=== PATIENT | male | born 1955 | race Caucasian/White ===

== ENCOUNTER → 2018-12-13 08:23 | Outpatient (CLI) | payer MEDICARE, MEDICAID ==
[~2018-12-13] VITALS: Ht 182.9 cm; Wt 91.4 kg
[~2018-12-13 08:23] MED LIST: NORCO 10-325 TA1 TAB PO; PEPCID AC20 MG PO; REQUIP5 MG PO
[2018-12-13 08:56] LABS: BASOPHILS 0.6 % (0-2); EOSINOPHILS 5.8 % (0-7); HEMATOCRIT 38.9 % (42.0-54.0); HEMOGLOBIN 13.2 g/dL (13.5-17.5); LYMPHOCYTES 32.1 % (15-50); MCH 31.4 pg (26.0-34.0); MCHC 33.9 g/dL (31.0-37.0); MCV 92.6 fL (80.0-100.0); MEAN PLATELET VOLUME 8.8 fL (7.4-10.4); MONOCYTES 7.5 % (2-11); PLATELET COUNT 218 10x3/uL (130-400); RDW 13.7 % (11.5-14.5); WBC 5.3 10x3/uL (4.8-10.8)
[2018-12-13 09:03] LABS: APTT 32.6 SECONDS (22.8-39.4); INR 0.97 (0.85-1.17); PROTIME 12.4 SECONDS (11.6-15.0)
[2018-12-13 09:04] LABS: ANION GAP 12.5 mmol/L (8-16); CALCIUM 9.4 mg/dL (8.5-10.1); CARBON DIOXIDE 28.1 mmol/L (21.0-32.0); CREATININE - SERUM 1.2 mg/dL (0.6-1.3); POTASSIUM - SERUM 4.6 mmol/L (3.5-5.1)
[2018-12-13 09:24] VITALS: BP 146/78; Ht 182.9 cm; Wt 91.4 kg
--- NOTE | 2018-12-13 10:20 | NUR ---
1015-RETURNED TO ROOM. BIOPSY CANCELLED PER RADIOLOGIST. CT SHOWS NO CHANGE FROM PREVIOUS SCAN. IV D/C. RADIOLOGIST TO SPEAK TO PATIENT AND . 1020-PO FLUIDS PROVIDED AND GETTING DRESSED.
--- NOTE | 2018-12-13 10:36 | NUR ---
1025-DISCHARGE INSTRUCTIONS REVIEWED. 1030-D/C HOME AMBULATORY PER REQUEST.
== END | disposition home or self-care (01) ==
LOC: D.SP 08:23 → D.CT 10:00 → D.SP 10:00 → D.CT 12-18 09:00
PROVIDERS: Specialist
DX: R91.1 Solitary pulmonary nodule (principal)

== ENCOUNTER → 2019-10-22 08:14 | Outpatient (CLI) | payer MEDICARE, MEDICAID ==
[2018-12-13 09:24] VITALS: BMI 27.3
== END | disposition home or self-care (01) ==
LOC: D.CT 10-21 09:00
PROVIDERS: ATTEND Family Medicine
DX: R91.1 Solitary pulmonary nodule (principal)